=== PATIENT | female | born 1950 | race Caucasian/White ===

== ENCOUNTER → 2016-12-25 07:13 | Day surgery (SDC) | payer MEDICARE, BC ==
[~2016-12-25 07:13] MED LIST: Betamethasone INJ* 6 MG/ML 5 ML VIAL (30 MG) ONE; Buffered Lidocaine 1% SYRIN* 3 ML/SYR SYRINGE INTRADERM ONE; Bupivacaine 0.25% SDV* 30 ML ONE; Lidocaine 1% MPF* 2 ML VIAL ONE; Midazolam* 1 MG/ML 2 ML VIAL (2 MG) ONE; Propofol* 10 MG/ML 20 ML BTL IV PUSH ONE; fentaNYL* 50 MCG/ML 2 ML VIAL (100 MCG VIAL) ONE
[2016-12-25 09:32] VITALS: BP 148/106
--- NOTE | 2016-12-26 01:16 | OP ---
DATE OF OPERATION: 12/25/16 [facility] DATE OF : 46 SURGEON: Maury Stubbs MD. DEPUTY COURT: DEAN Philippe. ANESTHESIOLOGIST: Dr. Jacobson. ANESTHESIA: Local MAC. PRE-OP DIAGNOSES: 1. Left carpal tunnel syndrome. 2. Left middle trigger finger. POST-OP DIAGNOSES: 1. Left carpal tunnel syndrome. 2. Left middle trigger finger. OPERATIVE PROCEDURES: 1. Left open carpal tunnel release. 2. Left middle finger steroid injection. INDICATIONS: Meenu is a 66-year-old female who has clinical and electrodiagnostic carpal tunnel syndrome. She has some denervation signs in the thenar muscles as well. We talked about risks and benefits including risk of incomplete resolution of her symptoms. She elected to proceed. On the morning of surgery, she presented and states that for the last week she has began developing saji triggering in the left middle finger and it feels quite sore and painful. I examined her and she has a little click at the A1 anastasiia and she is very tender right at the A1 anastasiia. I told her we can give her a steroid shot today in the operating room and she wanted to have that done. ESTIMATED BLOOD LOSS: 5 mL. COMPLICATIONS: None. FINDINGS: As expected. DESCRIPTION OF PROCEDURE: Meenu was seen in the preoperative holding area and the correct side, site, and procedure were identified. We came back to the operating room where she got some anesthesia and then I injected the operative area with 0.25% Marcaine. After the local anesthesia had been infiltrated, we then again cleansed the skin over the left middle finger A1 anastasiia area with alcohol. A 25-gauge needle was used to inject 1 mL of 1% lidocaine and 6 mg of betamethasone into the area over the left middle finger A1 anastasiia. After this had been done, we went ahead and prepped and draped the arm in the usual fashion and had a formal time-out. I made a standard 2 to 3 cm incision longitudinally in the typical area for an open carpal tunnel release. Dissection was carried down to the skin and subcutaneous tissue and palmar fascia. The transverse carpal ligament was visualized. I began the release of the ligament distally and then proceeded proximal staying just off the radial aspect of the hook of hamate. When I got to the level of the proximal aspect of the incision, I used the tenotomy scissors to release the fat and this was retracted ulnarly as well as superficially with a El retractor. Under direct visualization, I then used the tenotomy scissors to complete the release of the rest of the transverse carpal ligament and distal antebrachial fascia to the level of about 4 or 5 cm proximal to the volar wrist flexion crease. I then checked the decompression proximally and distally. There was absolutely no compression on the nerve proximally. I released a few more traversing collagen fibers distally and there was absolutely no pressure on the nerve distally. At this point, I went ahead and irrigated out the wound. Skin was closed with some with 4-0 nylon suture. The wound was dressed with Xeroform, 4x4's, sterile Webril, and an Luis wrap. Tourniquet was then deflated. The arm had been exsanguinated and the tourniquet inflated to 250 mmHg prior to making skin incision. All the fingers pinked up immediately. She was then woken up and taken to the recovery room in stable condition. [id number]/[facility] #: [id number] LUANN
== END | disposition home or self-care (01) ==
LOC: OREAST 07:13
PROVIDERS: ATTEND Orthopaedic Surgery Hand Surgery
DX: G56.02 Carpal tunnel syndrome, left upper limb (principal); M65.332 Trigger finger, left middle finger; F17.200 Nicotine dependence, unspecified, uncomplicated
CPT/HCPCS: J0702; J2250; J2704; J3010

== ENCOUNTER 2017-01-29 09:01 | Day surgery (SDC) | payer MEDICARE, BC ==
[~2017-01-29 09:01] MED LIST changes: -Betamethasone INJ* 6 MG/ML 5 ML VIAL (30 MG) ONE; -Buffered Lidocaine 1% SYRIN* 3 ML/SYR SYRINGE INTRADERM ONE; -Bupivacaine 0.25% SDV* 30 ML ONE; +Lidocain 1% EPI 1:100,000 * 30 ML MDV ONE; -Lidocaine 1% MPF* 2 ML VIAL ONE; -Midazolam* 1 MG/ML 2 ML VIAL (2 MG) ONE; -Propofol* 10 MG/ML 20 ML BTL IV PUSH ONE; -fentaNYL* 50 MCG/ML 2 ML VIAL (100 MCG VIAL) ONE
[2017-01-29] MEDS ORDERED: Betamethasone INJ* 6 MG/ML 5 ML VIAL (30 MG) ONE ×2 (12:49)
[2017-01-29] MEDS ORDERED: Bupivacaine 0.25% SDV* 30 ML ONE (13:15)
[2017-01-29 13:47] VITALS: BP 157/94
--- NOTE | 2017-01-30 00:50 | OP ---
DATE OF OPERATION: 01/29/17 [facility] DATE OF : 46 SURGEON: Maury Stubbs MD PLANT ATTENDANT OR ASSISTANT OPERATOR: DEAN Philippe ANESTHESIOLOGIST: None. ANESTHESIA: Local only with 1% lidocaine with epinephrine and bicarbonate. PRE-OP DIAGNOSES: 1. Right carpal tunnel syndrome. 2. Left index trigger finger. POST-OP DIAGNOSES: 1. Right carpal tunnel syndrome. 2. Left index trigger finger. OPERATIVE PROCEDURE: 1. Right open carpal tunnel release. 2. Left index finger trigger finger injection. INDICATIONS: Meenu is a 66-year-old female who has had bilateral carpal tunnel syndrome. I previously released the left side. She has been night bracing and she has done nonoperative treatment for quite some time; it has not improved. We talked about risks and benefits. She wanted to proceed with right carpal tunnel release. ESTIMATED BLOOD LOSS: 5 mL. COMPLICATIONS: None. FINDINGS: As expected. DESCRIPTION OF PROCEDURE: Meenu was seen in the preoperative holding area and the correct site, side, and procedure were identified. We had a time-out and then I infiltrated the operative area with 1% lidocaine with epinephrine and bicarbonate. We then waited for a period of time and then came back to the operating room, where the arm was prepped and draped in the usual fashion and a formal time-out was performed. I began by making a longitudinal 2- to 3-cm incision in the standard location for carpal tunnel release. The dissection was carried down through the subcutaneous tissue in the palmar fascia to expose the transverse carpal ligament. I then went ahead and used a 15 blade to release the transverse carpal ligament just off the radial aspect of the hook of the hamate. Release was carried out from distal to the proximal. When I came out to the level of the wrist flexion crease, I went ahead and released the subcutaneous tissue and retracted this superficially and ulnarly. Under direct visualization, I then used the tenotomy scissors to release the rest of the transverse carpal ligament and the distal antebrachial fascia to a level of several centimeters proximal to the wrist flexion crease. I then checked the decompression proximally and distally. I released a few more bands distally of the palmar fascia. There was absolutely no compression on the nerve. The super-ficial palmar arch was protected throughout the entirety of the procedure. The median nerve was quite purple and quite inflamed under the transverse carpal ligament. Once I was satisfied with the decompression, I went ahead and irrigated out the wound and the skin was closed with 4-0 nylon horizontal mattress sutures. I then went ahead and broke scrub and went over and the area over the left index finger A1 anastasiia was cleansed with alcohol. A 25-gauge needle was used to inject 1 mL of 1% lidocaine and 6 mg of betamethasone in to the area over the left index finger A1 anastasiia. She tolerated this well. Band-Aid was applied. She was then taken to the recovery room in stable condition. Please note that the carpal tunnel incision was dressed with Xeroform, 4x4s, sterile Webril, and an Luis wrap. [id number]/[facility] #: [id number] LUANN
== END 2017-01-29 13:48 | disposition home or self-care (01) ==
LOC: OREAST 09:01
PROVIDERS: ATTEND Orthopaedic Surgery Hand Surgery
DX: G56.01 Carpal tunnel syndrome, right upper limb (principal); M65.322 Trigger finger, left index finger; Z72.0 Tobacco use
CPT/HCPCS: J0702

== ENCOUNTER 2019-05-31 16:15 | Emergency (ER) | payer MEDICARE, BC ==
[2019-05-31 16:45] VITALS: BP 126/86
--- NOTE | 2019-05-31 17:03 | UC ---
Lower Extremity/Ankle HPI - HPI Summary HPI Summary: ONSET LAST NIGHT OF RIGHT CALF PAIN, POSTERIOR KNEE PAIN AND POSTERIOR THIGH PAIN. STARTED WHILE AT REST. STATES SHE COULD NOT EVEN STAND UP LAST NIGHT HER LEG WOULD NOT SUPPORT HER. THIS MORNING NOTICED SOME SWELLING TO HER RIGHT MEDIAL KNEE. SHE DENIES ANY RECENT TRAUMA OR FALLS. NO RECENT TRAVEL. SHE IS A SMOKER. RIGHT KNEE REPLACEMENT [address] HUSSEIN[address] STATES SHE HAD THE SAME SYMPTOMS 6 WEEKS AGO WHICH RESOLVED ON THEIR OWN AFTER A FEW DAYS. SHE DECIDED TO COME IN FOR EVALUATION THIS TIME BECAUSE IT WAS THE SECOND TIME IT HAPPENED AND NOW SHE'S WORRIED. NO PERSONAL OR FAMILY H/O BLOOD CLOTS. - History of Current Complaint Chief Complaint: UCLowerExtremity Stated Complaint: LEG COMPLAINT Time Seen by Provider: 05/31/19 16:25 Hx Obtained From: Patient, Family/Legal Support Specialist - Onset/Duration: Sudden Onset, Lasting Hours, Still Present Severity Initially: Moderate Severity Currently: Moderate Pain Intensity: 6 Pain Scale Used: 0-10 Numeric Aggravating Factor(s): Standing Alleviating Factor(s): Rest Able to Bear Weight: Yes - WITH PAIN - Allergies/Home Medications Allergies/Adverse Reactions: Allergies Allergy/AdvReac Type Severity Reaction Status Date / Time latex Allergy Intermediate Rash Verified 05/31/19 16:46 PMH/Surg Hx/FS Hx/Imm Hx Endocrine History: Hypothyroidism Cardiovascular History: Hypertension Other History Of: Negative For: Anticoagulant Therapy - Surgical History Surgical History: Yes Surgery Procedure, Year, and Place: c-sect 2X; lt ankle ORIF 2X; bilat breast cysts removed-benign, tonillectomy; tubal preg-removal of fallopian tube; KNEE REPLACEMENT, carpal tunnel - Family History Known Family History: Negative: Blood Disorder - Social History Alcohol Use: Occasionally Substance Use Type: None Smoking Status (MU): Light Every Day Tobacco Smoker Type: Cigarettes Have You Smoked in the Last Year: Yes Household Exposure Type: Cigarettes Review of Systems All Other Systems Reviewed And Are Negative: Yes Constitutional: Positive: Negative Skin: Positive: Negative Respiratory: Positive: Negative Cardiovascular: Positive: Negative Gastrointestinal: Positive: Negative Musculoskeletal: Positive: Arthralgia, Myalgia Physical Exam Triage Information Reviewed: Yes Appearance: Well-Appearing, Well-Nourished, Pain Distress - MILD Vital Signs: Initial Vital Signs Temp 99.0 F 05/31/19 16:42 Pulse 86 05/31/19 16:42 Resp 19 05/31/19 16:42 BP 126/86 05/31/19 16:42 Pulse Ox 94 05/31/19 16:42 Vital Signs Reviewed: Yes Eyes: Positive: Conjunctiva Clear ENT: Positive: Hearing grossly normal Neck: Positive: Supple Respiratory: Positive: No respiratory distress, No accessory muscle use Cardiovascular: Positive: Pulses Normal Abdomen Description: Positive: Soft Musculoskeletal: Positive: ROM Intact, No Edema, Other: - TENDER RIGHT CALF AND HAMSTRINGS. NO EDEMA OR ERYTHEMA. NO CORDS PALPATED. RIGHT KNEE WITH EDEMA MEDIALLY. MEDIAL JOINT LINE TENDERNESS. NO LIGAMENT INSTABILITY. Neurological: Positive: Alert Psychological: Positive: Age Appropriate Behavior Skin: Negative: Rashes Diagnostics - Radiology RIGHT KNEE XRAYS Radiology Interpretation Completed By: Radiologist Summary of Radiographic Findings: STATUS POST TOTAL RIGHT KNEE REPLACEMENT SURGERY. THERE IS PERIPROSTHETIC LUCENCY ADJACENT TO THE MEDIAL ASPECT OF THE TIBIAL COMPONENT RAISING THE POSSIBILITY OF LOOSENING. THERE IS ALSO SUGGESTION OF A CHRONIC FRACTURE THROUGH THE VERY MEDIAL ASPECT OF THE PROXIMAL TIBIA WHICH IS UNCHANGED. RLE US Radiology Interpretation Completed By: Radiologist Summary of Radiographic Findings: NO EVIDENCE FOR DEEP VENOUS THROMBOSIS Lower Extremity Course/Dx - Course Course Of Treatment: RIGHT KNEE X-RAYS SUGGEST POSSIBLE LOOSENING OF HER PROSTHESIS. NO DVT ON ULTRASOUND. PATIENT ADVISED TO FOLLOW-UP WITH HER ORTHOPEDIST FOR FURTHER EVALUATION. SHE DECLINES KNEE IMMOBILIZER. STATES SHE HAS CRUTCHES AND CANE AT HOME THAT SHE WILL USE TO HELP WITH MOBILITY. OTC MEDICATIONS NEEDED FOR DISCOMFORT. 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 CALL YOUR ORTHOPEDIST TOMORROW FOR FOLLOW-UP APPOINTMENT THIS WEEK FOR EVALUATION. I RECOMMEND YOU USE YOUR CRUTCHES OR CANE TO HELP WITH YOUR MOBILITY. DO NOT OVEREXERT. ULTRASOUND NEGATIVE FOR DVT. - Billing Disposition and Condition Condition: STABLE Disposition: Home
== END 2019-05-31 18:40 | disposition home or self-care (01) ==
LOC: UCEAST 16:15
DX: T84.84XA Pain due to internal orthopedic prosthetic devices, implants and grafts, initial encounter (principal); G89.18 Other acute postprocedural pain; I10 Essential (primary) hypertension; E03.9 Hypothyroidism, unspecified; F17.210 Nicotine dependence, cigarettes, uncomplicated; Z91.040 Latex allergy status
CPT/HCPCS: 99211; G0463

== ENCOUNTER 2022-01-31 10:15 | Observation (INO) ==
[~2022-01-31 10:15] MED LIST changes: +Buffered Lidocaine 1% SYRIN 1 ml INTRADERM ONE; +Famotidine IV 10 MG/ML 2 ml VIAL (20 mg) IV ONE; +Lactated Ringers 1000 ml BAG 1,000 ML IV SCH; -Lidocain 1% EPI 1:100,000 * 30 ML MDV ONE
[2022-01-31] MEDS ORDERED: ceFAZolin 2 GM in NS PREMIX 2 GM/100 ML BAG IVPB ONE (10:32)
[2022-01-31] MEDS ORDERED: Famotidine IV 10 MG/ML 2 ml VIAL (20 mg) ONE (10:32)
[2022-01-31] MEDS ORDERED: ROPIVACAINE 5 MG/ML 30 ML BTL (0.5%) ONE ×2 (11:41→14:16)
[2022-01-31] MEDS ORDERED: Midazolam 2 mg/2 ml VIAL 1 mg/ml 2 ml VIAL (2 mg) ONE ×2 (11:50→12:52)
[2022-01-31] MEDS ORDERED: fentaNYL 100 mcg/2 ml 50 MCG/ML VIAL ONE (11:50)
[2022-01-31] MEDS ORDERED: Naloxone 0.4 mg VIAL 0.4 mg/ml 1 ml VIAL IV PRN (12:33)
[2022-01-31] MEDS ORDERED: fentaNYL 100 mcg/2 ml 50 MCG/ML VIAL IV PRN (12:33)
[2022-01-31] MEDS ORDERED: Ondansetron 4 mg VIAL 2 MG/ML 2 ml VIAL IV PRN ×2 (12:33→15:18)
[2022-01-31] MEDS ORDERED: HYDROmorphone 1 MG/1 ML SYRINGE IV PRN (12:33)
[2022-01-31] MEDS ORDERED: Phenylephrine IV 10 MG/ML 1 ml VIAL ONE (12:49)
[2022-01-31] MEDS ORDERED: Lidocaine 2% PF 5 ML VIAL ONE (12:52)
[2022-01-31] MEDS ORDERED: Bupivacaine 0.5% PF 10 ML SDV VIAL INJ ONE (13:21)
[2022-01-31] MEDS ORDERED: Ondansetron 4 mg VIAL 2 MG/ML 2 ml VIAL ONE (13:40)
[2022-01-31] MEDS ORDERED: Dexamethasone IV 4 MG/ML VIAL 1 ml VIAL ONE (13:40)
[2022-01-31] MEDS ORDERED: Morphine 2 MG/ML SYRINGE IV PRN (15:18)
[2022-01-31] MEDS ORDERED: Magnesium Hydroxide LIQ 30 ML UDC PO PRN (15:18)
[2022-01-31] MEDS ORDERED: Ondansetron ODT 4 mg TAB 4 MG TAB PO PRN (15:18)
[2022-01-31] MEDS ORDERED: Lactulose 30 ml UDC PO PRN (15:18)
[2022-01-31] MEDS ORDERED: Conjugated Estrogens VAG CM 42.5 gm TUBE VAGINAL PRN (15:25)
[2022-01-31] MEDS: Lactated Ringers 1000 ml BAG 1,000 ML IV SCH (16:50)
[2022-01-31] MEDS ORDERED: Nicotine GUM 2MG FRUIT FLAVOR PO PRN (17:10)
[2022-01-31] MEDS: Magnesium Hydroxide LIQ 30 ML UDC PO SCH (20:47)
[2022-02-01] MEDS: ceFAZolin 1 GM Q8H (ADVAN) IVPB SCH ×2 (00:31→08:49)
[2022-02-01] MEDS: Lactated Ringers 1000 ml BAG 1,000 ML IV SCH (03:27)
[2022-02-01 04:49] LABS: Hematocrit 34 % (35-47); Hemoglobin 11.6 g/dL (12.0-16.0); Platelet Count 189 10^3/uL (150-450)
[2022-02-01 05:10] LABS: Calcium 9.5 mg/dL (8.6-10.3); Potassium 3.7 mmol/L (3.5-5.0); eGFR CKD-EPI 49.3 (>60)
[2022-02-01] MEDS: Magnesium Hydroxide LIQ 30 ML UDC PO SCH (08:53)
[2022-02-01] MEDS ORDERED: Vitamin THERAPEUTIC TAB PO SCH (09:00)
[2022-02-01] MEDS ORDERED: Nicotine PATCH 14 MG/24 HR PATCH TRANSDERM SCH (09:00)
[2022-02-01 11:12] VITALS: BP 133/76
== END 2022-02-01 14:25 | disposition home or self-care (01) ==
LOC: SSU 10:15 → OR 10:15
PROVIDERS: ADMIT Orthopaedic Surgery Adult Reconstructive Orthopaedic Surgery; ATTEND Orthopaedic Surgery Adult Reconstructive Orthopaedic Surgery